=== PATIENT | female | born 1975 | race African-American/Black ===

== ENCOUNTER 2023-04-19 00:11 | Inpatient (IN) | payer MEDICAID, SELFPAY ==
[2023-04-19 00:23] VITALS: BP 119/84; PULSE 71; RESP 18; TEMP 36.7; O2SAT 95
[2023-04-19 00:26] VITALS: BMI 30.3
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
[2023-04-19 06:00] VITALS: BP 135/85; PULSE 72; RESP 16; O2SAT 98
[2023-04-19] MEDS: duloxetine 60 mg Capsule PO (08:28)
[2023-04-19 09:47] VITALS: PULSE 75; RESP 16; O2SAT 98
[2023-04-19] MEDS: hyDROXYzine 25 mg Capsule 50 MG PO (12:55)
--- NOTE | 2023-04-19 12:56 | PC.NURSE ---
PRN VISTARIL 50 MG GIVEN PO PER PT C/O STATED AXNIETY
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
[2023-04-19 13:47] VITALS: BP 141/81; PULSE 63; RESP 16; TEMP 36.8; O2SAT 98
[2023-04-19] MEDS: ARIPiprazole 10 mg Tablet 5 MG PO (15:24)
[2023-04-19] MEDS: quetiapine 100 mg Tablet PO (20:05)
[2023-04-19] MEDS: prazosin 1 mg Capsule 2 MG PO (20:05)
[2023-04-19] MEDS: OLANZapine 5 mg ODT PO (20:05)
[2023-04-19 20:27] VITALS: BP 113/73; PULSE 65; RESP 16; TEMP 36.8; O2SAT 95
[2023-04-20 06:00] VITALS: BP 107/67; PULSE 80; RESP 16; O2SAT 95
[2023-04-20 08:00] VITALS: PULSE 75; RESP 16; O2SAT 96
[2023-04-20] MEDS: duloxetine 60 mg Capsule PO (08:53)
[2023-04-20] MEDS: ARIPiprazole 10 mg Tablet PO (08:53)
--- NOTE | 2023-04-20 09:04 | PC.NURSE ---
During morning assessment, patient reported depression and thoughts of harming self. Patient denied a plan. Patient did not want to talk about it, per patient. Patient stated that she is very tired, eyelids heavy, and wanted to lay down. This nurse escorted patient to her room and ensured she safely returned to bed. Will continue to monitor.
[2023-04-20] MEDS: hyDROXYzine 25 mg Capsule 50 MG PO (12:54)
--- NOTE | 2023-04-20 12:55 | PC.NURSE ---
Patient reports anxiety 9/10. Patient states that she is anxious because she has a lot on her shoulders. This nurse administered Vistaril 50mg PO to patient. Will continue to monitor closely.
[2023-04-20 13:25] VITALS: BP 102/66; PULSE 77; RESP 16; TEMP 36.5; O2SAT 99
--- NOTE | 2023-04-20 17:35 | P.NPUPN_ITS ---
Subjective NPU Subjective: Patient presented today reporting that she is feeling about the same. She endorsed continued auditory and visual hallucinations but reports that she had no side effects from the medication and feels like she is tolerating the Abilify fine. She did meet with the social work team and does feel optimistic that she can get help for aftercare and hopefully some assistance with a residential recovery situation. She reports that she slept okay. We discussed continuing to titrate the Abilify to effect. Mental Status Exam MSE Comments: This is a overweight versus obese -Serbian female with hospital scrubs with limited grooming and eye contact. No abnormal movements except for psychomotor retardation. Cooperative with exam in mild distress. Speech was decreased rate and volume with significant mumbling and mild dysarthria. Mood described as depressed, affect congruent. Thought process linear. Thought content: Patient endorsed suicidal and homicidal ideation, there was paranoia reported and guardedness noted, she endorsed auditory and visual hallucinations. Attention and concentration were mostly intact and memory was limited but at times reliable but none were formally tested. He is alert and oriented to person and place. Insight, judgment and impulse control are limited versus impaired. Vitals/I&O/Wt Last Vital Signs Temp 98.7 F 04/20/23 19:51 Pulse 70 04/20/23 19:51 Resp 16 04/20/23 19:51 BP 116/78 04/20/23 19:51 Pulse Ox 95 04/20/23 19:51 O2 Del Method Room Air 04/20/23 08:00 Weight last 48 hrs Weight 70.307 kg A&P Assessment and plan (1) Schizophrenia: Plan This is a 48-year-old, -Serbian female with a reported long history of mental health/psychiatric concerns going back 20 years with multiple trials of medications who presents off of medication with significant psychosocial stressors of being newly homeless. 1. Started Abilify, with ? dose today of 5 mg, then this morning started 10 mg p.o. daily. 2. Encourage individual, group, and milieu therapy. 3. Continue q-15-minute checks for safety. 4. Work with social work team on her current living situation. Involuntary Hold Information 96 Hour Hold: 96 Hour Involuntary Admission: No Attestations NPU Medical Necessity Statement*: Inpatient hospitalization is medically necessary and the clinically appropriate intervention at this time.? We will monitor medications and make changes as indicated.? Likely length of stay 5-7 days. Coding Level of Care Code Acute Code for Chg Fwd Diagnoses Schizophrenia F20.9
[2023-04-20 19:51] VITALS: BP 116/78; PULSE 70; RESP 16; TEMP 37.1; O2SAT 95
[2023-04-20] MEDS: prazosin 1 mg Capsule 2 MG PO (20:22)
[2023-04-20] MEDS: quetiapine 100 mg Tablet PO (20:22)
[2023-04-21 06:00] VITALS: BP 117/72; PULSE 70; RESP 16; O2SAT 92
[2023-04-21] MEDS: albuterol 2.5 mg/3 mL Neb INHALATION (07:56)
[2023-04-21] MEDS: budesonide 0.5 mg/2 mL Neb INHALATION (07:56)
[2023-04-21 07:59] VITALS: PULSE 74; RESP 18; O2SAT 95
[2023-04-21] MEDS: duloxetine 60 mg Capsule PO (08:32)
[2023-04-21] MEDS: ARIPiprazole 10 mg Tablet PO (08:32)
[2023-04-21 13:44] VITALS: BP 116/73; PULSE 70; RESP 16; TEMP 36.6; O2SAT 95
--- NOTE | 2023-04-21 18:29 | P.NPUPN_ITS ---
Subjective NPU Subjective: Patient presented today reporting that she has been working with the social work team for possible women shelters. She reports that she made some calls as they recommended and that one place reported that they might be able to give her an answer and a likely spot on Thursday. We discussed continuing to call the numbers to give her the greatest option for aftercare. We had a long discussion about the Abilify so that she understood its purpose. We also discussed the fact that it is available in a 1 or 2-month injection. Mental Status Exam MSE Comments: This is a overweight versus obese -[place]er female with hospital scrubs with limited grooming and eye contact. No abnormal movements except for psychomotor retardation. Cooperative with exam in mild distress. Speech was decreased rate and volume with significant mumbling and mild dysarthria. Mood described as depressed, affect congruent. Thought process linear. Thought content: Patient endorsed suicidal and homicidal ideation, there was paranoia reported and guardedness noted, she endorsed auditory and visual hallucinations. Attention and concentration were mostly intact and memory was limited but at times reliable but none were formally tested. He is alert and oriented to person and place. Insight, judgment and impulse control are limited versus impaired. Vitals/I&O/Wt Last Vital Signs Temp 97.9 F 04/21/23 19:37 Pulse 74 04/21/23 19:37 Resp 18 04/21/23 20:00 BP 115/79 04/21/23 19:37 Pulse Ox 95 04/21/23 19:37 O2 Del Method Room Air 04/21/23 19:37 A&P Assessment and plan (1) Schizophrenia: Plan This is a 48-year-old, -[place] female with a reported long history of mental health/psychiatric concerns going back 20 years with multiple trials of medications who presents off of medication with significant psychosocial stressors of being newly homeless. 1. Started Abilify, with ? dose today of 5 mg, then 04/20/2023 started 10 mg p.o. daily. 2. Encourage individual, group, and milieu therapy. 3. Continue q-15-minute checks for safety. 4. Work with social work team on her current living situation. Involuntary Hold Information 96 Hour Hold: 96 Hour Involuntary Admission: No Attestations NPU Medical Necessity Statement*: Inpatient hospitalization is medically necessary and the clinically appropriate intervention at this time.? We will monitor medications and make changes as indicated.? Likely length of stay 4-6 days. Coding Level of Care Code Acute Code for Chg Fwd Diagnoses Schizophrenia F20.9
[2023-04-21] MEDS: hyDROXYzine 25 mg Capsule 50 MG PO (19:34)
[2023-04-21] MEDS: quetiapine 100 mg Tablet PO (19:34)
[2023-04-21] MEDS: prazosin 1 mg Capsule 2 MG PO (19:34)
[2023-04-21 19:37] VITALS: BP 115/79; PULSE 74; RESP 20; TEMP 36.6; O2SAT 95
[2023-04-21 20:00] VITALS: RESP 18
[2023-04-22 06:00] VITALS: BP 113/74; PULSE 88; RESP 18; TEMP 36.8; O2SAT 97
[2023-04-22 09:07] VITALS: PULSE 71; RESP 16; O2SAT 97
[2023-04-22] MEDS: budesonide 0.5 mg/2 mL Neb INHALATION (09:08)
[2023-04-22] MEDS: ARIPiprazole 10 mg Tablet PO (10:10)
[2023-04-22] MEDS: duloxetine 60 mg Capsule PO (10:10)
[2023-04-22 14:00] VITALS: BP 113/85; PULSE 70; RESP 16; TEMP 36.9; O2SAT 93
--- NOTE | 2023-04-22 16:01 | P.NPUPN_ITS ---
Subjective NPU Subjective: Patient presented today reporting that she is doing okay. She reports that the medication is working effectively and she has been working with the social work team to try to find some, limited long-term most likely. She reports that [address] so they were not sure when they would have a spot the other place guaranteed her spot by Thursday. She wondered whether we would allow her to stay till then and we discussed continuing to work with the social work team to make sure we have explored all the options but that we were committed to solidify her medication and discharge her to a reasonable situation for her to continue her recovery. Mental Status Exam MSE Comments: This is a overweight versus obese -[place] female with hospital scrubs with limited grooming and eye contact. No abnormal movements except for psychomotor retardation. Cooperative with exam in mild distress. Speech was decreased rate and volume with significant mumbling and mild dysarthria. Mood described as depressed, affect congruent, but slightly brighter. Thought process linear. Thought content: Patient endorsed suicidal and homicidal ideation, there was paranoia reported and guardedness noted, she endorsed auditory and visual hallucinations. Attention and concentration were mostly intact and memory was limited but at times reliable but none were formally tested. He is alert and oriented to person and place. Insight, judgment and impulse control are limited versus impaired. Vitals/I&O/Wt Last Vital Signs Temp 98.4 F 04/22/23 14:00 Pulse 70 04/22/23 14:00 Resp 16 04/22/23 14:00 BP 113/85 04/22/23 14:00 Pulse Ox 93 04/22/23 14:00 O2 Del Method Room Air 04/22/23 09:07 A&P Assessment and plan (1) Schizophrenia: Plan This is a 48-year-old, -[place] female with a reported long history of mental health/psychiatric concerns going back 20 years with multiple trials of medications who presents off of medication with significant psychosocial stressors of being newly homeless. 1. Started Abilify, with ? dose today of 5 mg, then 04/20/2023 started 10 mg p.o. daily. 2. Encourage individual, group, and milieu therapy. 3. Continue q-15-minute checks for safety. 4. Work with social work team on her current living situation. Involuntary Hold Information 96 Hour Hold: 96 Hour Involuntary Admission: No Attestations NPU Medical Necessity Statement*: Inpatient hospitalization is medically necessary and the clinically appropriate intervention at this time.? We will monitor medications and make changes as indicated.? Likely length of stay 3-5 days. Coding Level of Care Code Acute Code for Chg Fwd Diagnoses Schizophrenia F20.9
[2023-04-22 19:55] VITALS: BP 124/77; PULSE 65; RESP 18; TEMP 36.8; O2SAT 94
[2023-04-22] MEDS: prazosin 1 mg Capsule 2 MG PO (20:20)
[2023-04-22] MEDS: hyDROXYzine 25 mg Capsule 50 MG PO (20:20)
[2023-04-22] MEDS: quetiapine 100 mg Tablet PO (20:20)
[2023-04-23 06:00] VITALS: BP 92/57; PULSE 67; RESP 15; O2SAT 93
[2023-04-23] MEDS: ARIPiprazole 10 mg Tablet PO (08:46)
[2023-04-23] MEDS: duloxetine 60 mg Capsule PO (08:46)
[2023-04-23 14:00] VITALS: BP 138/84; PULSE 62; RESP 16; TEMP 36.8; O2SAT 98
--- NOTE | 2023-04-23 18:29 | W.PM.NPUPNS ---
Subjective NPU Subjective: Patient presented today notably outside of her room and appearing slightly less isolative. She endorses that she has made calls social work team has suggested and has 1 facility in [place] that is willing to take her Thursday. We encouraged that she continue to make calls to all the facilities so that she can utilize the one that best suits her. She agreed to continue making a calsl and reported that she was doing fine of the medication. Mental Status Exam MSE Comments: This is a overweight versus obese -[place] female with hospital scrubs with limited grooming and eye contact. No abnormal movements except for psychomotor retardation. Cooperative with exam in mild distress. Speech was decreased rate and volume with significant mumbling and mild dysarthria. Mood described as a little better, affect congruent and slightly brighter. Thought process linear. Thought content: Patient endorsed suicidal and homicidal ideation, there was paranoia reported and less guardedness noted, she endorsed auditory and visual hallucinations. Attention and concentration were mostly intact and memory was limited but at times reliable but none were formally tested. She is alert and oriented to person and place. Insight, judgment and impulse control are limited versus impaired. Vitals/I&O/Wt Last Vital Signs Temp 97.7 F 04/23/23 20:24 Pulse 67 04/23/23 20:24 Resp 16 04/23/23 20:24 BP 113/77 04/23/23 20:24 Pulse Ox 95 04/23/23 20:24 O2 Del Method Room Air 04/23/23 20:24 A&P Assessment and plan (1) Schizophrenia: Plan This is a 48-year-old, -[place] female with a reported long history of mental health/psychiatric concerns going back 20 years with multiple trials of medications who presents off of medication with significant psychosocial stressors of being newly homeless. 1. Started Abilify, with ? dose today of 5 mg, then 04/20/2023 started 10 mg p.o. daily. 2. Encourage individual, group, and milieu therapy. 3. Continue q-15-minute checks for safety. 4. Work with social work team on her current living situation. Involuntary Hold Information 96 Hour Hold: 96 Hour Involuntary Admission: No Attestations NPU Medical Necessity Statement*: Inpatient hospitalization is medically necessary and the clinically appropriate intervention at this time.? We will monitor medications and make changes as indicated.? Likely length of stay 2-4 days. Coding Level of Care Code Acute Code for Chg Fwd Diagnoses Schizophrenia F20.9
[2023-04-23 19:44] VITALS: PULSE 66; RESP 16; O2SAT 100
[2023-04-23] MEDS: budesonide 0.5 mg/2 mL Neb INHALATION (19:44)
[2023-04-23 20:24] VITALS: BP 113/77; PULSE 67; RESP 16; TEMP 36.5; O2SAT 95
[2023-04-23] MEDS: quetiapine 100 mg Tablet PO (20:30)
[2023-04-23] MEDS: prazosin 1 mg Capsule 2 MG PO (20:30)
[2023-04-23] MEDS: hyDROXYzine 25 mg Capsule 50 MG PO (20:35)
--- NOTE | 2023-04-24 06:24 | PC.NURSE ---
pt requested she not be woken up at 0600 for vs so she could sleep in. pt resp 18 pt resting well.
[2023-04-24] MEDS: duloxetine 60 mg Capsule PO (08:47)
[2023-04-24] MEDS: ARIPiprazole 10 mg Tablet PO (08:47)
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
[2023-04-24] MEDS: hyDROXYzine 25 mg Capsule 50 MG PO ×2 (12:57→20:31)
[2023-04-24 14:00] VITALS: BP 165/95; PULSE 80; RESP 16; TEMP 36.8; O2SAT 95
[2023-04-24 20:16] VITALS: BP 127/84; PULSE 86; RESP 17; TEMP 37.1; O2SAT 95
[2023-04-24] MEDS: trazodone 50 mg Tablet PO (20:30)
[2023-04-24] MEDS: prazosin 1 mg Capsule 2 MG PO (20:30)
[2023-04-24] MEDS: acetaminophen 325 mg Tablet 650 MG PO (20:31)
[2023-04-24] MEDS: quetiapine 100 mg Tablet PO (20:31)
[2023-04-24 21:32] VITALS: PULSE 78; RESP 16; O2SAT 96
[2023-04-24] MEDS: budesonide 0.5 mg/2 mL Neb INHALATION (21:32)
[2023-04-25 06:00] VITALS: BP 120/78; PULSE 66; RESP 18; O2SAT 93
[2023-04-25 08:00] VITALS: PULSE 65; RESP 16; O2SAT 97
[2023-04-25] MEDS: ARIPiprazole 10 mg Tablet PO (10:03)
[2023-04-25] MEDS: duloxetine 60 mg Capsule PO (10:03)
[2023-04-25 14:00] VITALS: BP 111/67; PULSE 68; RESP 16; TEMP 36.8; O2SAT 96
[2023-04-25] MEDS: ARIPiprazole 10 mg Tablet 5 MG PO (18:13)
--- NOTE | 2023-04-25 18:27 | W.PM.NPUPNS ---
Subjective NPU Subjective: Patient presented today reporting that she is doing okay. She is working with the social work team with the plan to go to [facility] on Thursday. She identified not feeling as well today and having more symptoms. We discussed the risks, benefits and alternatives of increasing Abilify to 15 mg and she understood and agreed to proceed as is documented in this note. We discussed a continued plan to discharge her on Thursday morning to [facility]. Mental Status Exam MSE Comments: This is a overweight versus obese -Gabonese female with hospital scrubs with limited grooming and eye contact. No abnormal movements except for psychomotor retardation. Cooperative with exam in mild distress. Speech was decreased rate and volume with significant mumbling and mild dysarthria. Mood described as not as good today, affect congruent. Thought process linear. Thought content: Patient denied suicidal and still endorsed homicidal ideation, there was paranoia reported and less guardedness noted, she endorsed auditory and visual hallucinations. Attention and concentration were mostly intact and memory was limited but at times reliable but none were formally tested. She is alert and oriented to person and place. Insight and judgment are improving and impulse control is limited. Vitals/I&O/Wt Last Vital Signs Temp 98.7 F 04/25/23 19:27 Pulse 63 04/25/23 19:27 Resp 20 H 04/25/23 19:27 BP 121/81 04/25/23 19:27 Pulse Ox 94 04/25/23 19:27 O2 Del Method Room Air 04/25/23 20:15 Weight last 48 hrs Weight 77.292 kg A&P Assessment and plan (1) Schizophrenia: Plan This is a 48-year-old, -Gabonese female with a reported long history of mental health/psychiatric concerns going back 20 years with multiple trials of medications who presents off of medication with significant psychosocial stressors of being newly homeless. 1. Started Abilify, with ? dose today of 5 mg, then 04/20/2023 started 10 mg p.o. daily. Increased Abilify to 15 mg p.o. daily. 2. Encourage individual, group, and milieu therapy. 3. Continue q-15-minute checks for safety. 4. Work with social work team on her current living situation. Involuntary Hold Information 96 Hour Hold: 96 Hour Involuntary Admission: No Attestations NPU Medical Necessity Statement*: Inpatient hospitalization is medically necessary and the clinically appropriate intervention at this time.? We will monitor medications and make changes as indicated.? Likely length of stay 2 days. Coding Level of Care Code Acute Code for Chg Fwd Diagnoses Schizophrenia F20.9
[2023-04-25 19:27] VITALS: BP 121/81; PULSE 63; RESP 20; TEMP 37.1; O2SAT 94
[2023-04-25] MEDS: OLANZapine 5 mg ODT PO (19:30)
[2023-04-25] MEDS: haloperidol 5 mg Tablet PO (19:33)
[2023-04-25] MEDS: hyDROXYzine 25 mg Capsule 50 MG PO (20:48)
[2023-04-25] MEDS: quetiapine 100 mg Tablet PO (20:48)
[2023-04-25] MEDS: prazosin 1 mg Capsule 2 MG PO (20:48)
[2023-04-26 06:00] VITALS: BP 105/70; PULSE 61; RESP 14; O2SAT 90
--- NOTE | 2023-04-26 07:38 | W.PM.NPUPNS ---
Subjective NPU Subjective: Patient presented today reporting that she is feeling like she is doing better today with the increase in Abilify. She denies any side effects of the medication. [facility] reports [facility] and feels she should be ready for this new chapter. Mental Status Exam MSE Comments: This is a overweight versus obese -[place] Citizen female with hospital scrubs with limited grooming and eye contact. No abnormal movements except for mild psychomotor retardation. Cooperative with exam in mild distress. Speech was decreased rate and volume with less mumbling and mild dysarthria. Mood described as doing better today, affect congruent. Thought process linear. Thought content: Patient denied suicidal and still endorsed negative thoughts about her uncle but denied that she would act on it, there was paranoia reported and less guardedness noted, she endorsed auditory and visual hallucinations. Attention and concentration were mostly intact and memory was limited but at times reliable but none were formally tested. She is alert and oriented to person and place. Insight and judgment are improving and impulse control is limited. Vitals/I&O/Wt Last Vital Signs Temp 98.7 F 04/25/23 19:27 Pulse 61 04/26/23 06:00 Resp 14 04/26/23 06:00 BP 105/70 04/26/23 06:00 Pulse Ox 90 04/26/23 06:00 O2 Del Method Room Air 04/26/23 07:27 Weight last 48 hrs Weight 77.292 kg A&P Assessment and plan (1) Schizophrenia: Plan This is a 48-year-old, -[place] Citizen female with a reported long history of mental health/psychiatric concerns going back 20 years with multiple trials of medications who presents off of medication with significant psychosocial stressors of being newly homeless. 1. Started Abilify, with ? dose today of 5 mg, then 04/20/2023 started 10 mg p.o. daily. Increased Abilify to 15 mg p.o. daily. 2. Encourage individual, group, and milieu therapy. 3. Continue q-15-minute checks for safety. 4. Work with social work team on her current living situation. Involuntary Hold Information 96 Hour Hold: 96 Hour Involuntary Admission: No Attestations NPU Medical Necessity Statement*: Inpatient hospitalization is medically necessary and the clinically appropriate intervention at this time.? We will monitor medications and make changes as indicated.? Tentative plan for discharge tomorrow Coding Level of Care Code Acute Code for Chg Fwd Diagnoses Schizophrenia F20.9
--- NOTE | 2023-04-26 08:52 | PC.NURSE ---
During morning assessment, patient stated to this nurse that she is feeling a little bit better than yesterday. Patient stated that she isn't currently feeling suicidal, but that she did last night.
[2023-04-26] MEDS: ARIPiprazole 10 mg Tablet 15 MG PO (08:55)
[2023-04-26] MEDS: duloxetine 60 mg Capsule PO (08:57)
[2023-04-26 14:00] VITALS: BP 102/67; PULSE 64; RESP 20; TEMP 36.9; O2SAT 95
[2023-04-26] MEDS: quetiapine 100 mg Tablet PO (20:15)
[2023-04-26] MEDS: prazosin 1 mg Capsule 2 MG PO (20:15)
[2023-04-26 20:53] VITALS: BP 122/80; PULSE 68; RESP 18; TEMP 37; O2SAT 96
[2023-04-27 06:00] VITALS: BP 136/72; PULSE 76; RESP 16; TEMP 36.4; O2SAT 97
[2023-04-27 08:00] VITALS: PULSE 73; RESP 18; O2SAT 94
[2023-04-27] MEDS: ARIPiprazole 10 mg Tablet 15 MG PO (08:13)
[2023-04-27] MEDS: duloxetine 60 mg Capsule PO (08:14)
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
[2023-04-27 13:22] VITALS: PULSE 73; RESP 18; O2SAT 94
[2023-04-27 14:00] VITALS: BP 99/58; PULSE 70; RESP 16; TEMP 36.6; O2SAT 98
== END 2023-04-27 15:26 | disposition home or self-care (01) | DRG 885 ==
PROVIDERS: Admitting Provider Psychiatry & Neurology Psychiatry; Visit Provider Psychiatry & Neurology Psychiatry
DX: F20.9 Schizophrenia, unspecified (principal); R45.851 Suicidal ideations; R45.850 Homicidal ideations; Z59.00 Homelessness unspecified; F43.10 Post-traumatic stress disorder, unspecified; Z81.8 Family history of other mental and behavioral disorders
CPT/HCPCS: 94640; 97150; 97165; 99238; J7613; J7626

== ENCOUNTER 2023-06-04 10:51 | Inpatient (IN) | payer MEDICAID, SELFPAY ==
[2023-06-04 10:59] VITALS: BP 103/73; PULSE 75; RESP 16; TEMP 36.9; O2SAT 96
[2023-06-04 11:21] VITALS: RESP 18; O2SAT 97
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
[2023-06-04 11:46] LABS: Add Urine Microscopic? YES; Bilirubin Urine Neg (Negative); Blood Urine Neg (Negative); Glucose Urine UA Norm (Normal); Ketones Urine 1+ (Negative); Leukocyte Esterase Urine Trace (Negative); Nitrate Urine Negative (Negative); Protein Urine Neg (Negative); Urine Appearance Clear (CLEAR); Urine Color Yellow (Yellow); Urobilinogen Urine Norm (Negative); pH Urine 5 (5-7)
[2023-06-04 11:47] LABS: Add Urine Culture? No; Amphetamines Screen Urine Negative (Negative); Barbiturates Screen Urine Negative (Negative); Benzodiazepines Screen Urine Negative (Negative); Cocaine Screen Urine Negative (Negative); Opiate Screen Urine Negative (Negative); PCP Screen Urine Negative (Negative); RBC Urine 0-4 /hpf (0-2); Squamous Epithelial Cell Urine 0-4 /hpf (0-5); THC Screen Urine Negative (Negative)
[2023-06-04 11:51] LABS: Basophils % 0.5 %; Eosinophils # 0.1 10^3/uL (0.0-0.8); Eosinophils % 2.5 %; Lymphocytes # 1.4 10^3/uL (0.8-4.8); Lymphocytes % 30.6 %; Mean Platelet Volume 10.1 fL (7.4-10.4); Monocytes # 0.3 10^3/uL (0.2-0.9); Monocytes % 7.7 %; Neutrophils # 2.57 10^3/uL (1.8-7.7); Neutrophils % 58.2 %; Nucleated Red Blood Cells % 0 %; Platelet Count 153 10^3/cmm (157-399); White Blood Count 4.41 10^3/uL (3.29-11.43)
[2023-06-04 12:13] LABS: Alanine Aminotransferase 42 U/L (0-33); Albumin Level 3.6 g/dL (3.5-5.2); Alkaline Phosphatase 98 U/L (35-105); Aspartate Amino Transferase 33 U/L (0-32); Blood Urea Nitrogen 13 mg/dL (6-20); Calcium 9.4 mg/dL (8.5-10.5); Carbon Dioxide 29 mmol/L (22-29); Chloride 108 mmol/L (98-107); Globulin 2.9 g/dL (1.3-4.6); Glomerular Filtration Rate 92.6 mL/min (90-130); Glucose 105 mg/dL (65-115); Osmolality Calculated 298 mOsm/kg (285-295); Sodium 144 mmol/L (136-145); Total Bilirubin 0.2 mg/dL (0.15-1.2); Total Protein 6.5 g/dL (6.6-8.7)
[2023-06-04 12:17] LABS: Acetaminophen < 5.0 ug/mL (10-30); Alcohol Level < 10 mg/dL (0-10); Salicylate < 0.3 mg/dL (3-10)
[2023-06-04 12:34] LABS: HCG Qualitative Urine. Negative (Negative)
[2023-06-04 14:50] VITALS: BP 122/89; PULSE 63; RESP 18; TEMP 36.6; O2SAT 98
--- NOTE | 2023-06-04 16:30 | PC.NURSE ---
Patient presents from ER looking disheveled. She states she currently lives at [facility] with two roommates and felt well until recently, when she began to have increased anxiety. She states she has been seeing a figure in her room and hearing someone calling her full name when she is alone. Patient endorses poor sleep since last Thursday and says this is due to her doctor from [facility] in [place], [place] changing her sleeping medications. She denies avh and si/hi at this time, but does endorse feeling anxious at this time. Patient has been hospitalized multiple times in different states in psychiatric facilities and currently utilizes [facility] for outpatient psychiatric treatment.
[2023-06-04] MEDS: hyDROXYzine 25 mg Capsule 50 MG PO (18:24)
[2023-06-04 20:07] VITALS: BP 110/65; PULSE 64; RESP 16; TEMP 36.7; O2SAT 96
[2023-06-04] MEDS: trazodone 50 mg Tablet PO (20:15)
[2023-06-04] MEDS: prazosin 1 mg Capsule 2 MG PO (20:15)
[2023-06-04] MEDS: quetiapine 100 mg Tablet PO (20:15)
[2023-06-05] MEDS: ARIPiprazole 10 mg Tablet 15 MG PO (08:49)
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
[2023-06-05] MEDS: duloxetine 30 mg Capsule PO (13:54)
[2023-06-05 14:00] VITALS: BP 124/81; PULSE 69; RESP 16; TEMP 36.9; O2SAT 94
[2023-06-05] MEDS: prazosin 1 mg Capsule 2 MG PO (20:20)
[2023-06-05] MEDS: trazodone 50 mg Tablet PO (20:20)
[2023-06-05] MEDS: quetiapine 100 mg Tablet 200 MG PO (20:20)
[2023-06-05 20:46] VITALS: BP 129/80; PULSE 64; RESP 16; TEMP 36.7; O2SAT 99
--- NOTE | 2023-06-06 06:27 | PC.NURSE ---
pt resting resp 16
[2023-06-06] MEDS: duloxetine 60 mg Capsule PO (09:43)
[2023-06-06] MEDS: ARIPiprazole 10 mg Tablet 15 MG PO (09:43)
--- NOTE | 2023-06-06 13:56 | P.NPUPN_ITS ---
Subjective NPU Subjective: Patient is a 48-year-old -[place] female with a history of schizophrenia along with PTSD admitted with psychosis and suicidal ideation. Patient had reported feeling better with the medication changes including reinitiation of Cymbalta and Abilify. She had expressed desire to return back to [facility] but was concerned about returning back to [facility] due to the medica tion changes that had been made there that were less than productive. Patient reported improved sleep and continue to report some depression with low energy and low motivation. She had continued to endorse hearing voices and reported some continued paranoia. Mental Status Exam MSE Comments: Obese -[place]gian female who was alert and oriented to person place time and situation. There was no evidence of any abnormal involuntary motor movements tics or tremors appreciated. Her gait was slow and steady. Her speech was normal in regards to rate rhythm and prosody. Her mood was described as depressed. Her affect was blunted. Her thought process was linear logical and goal-directed. Her thought content showed evidence of suicidal ideation with no plan. She denied any homicidal ideation. She had endorsed auditory hallucinations but did not actively appear to be responding to internal stimuli. There was continued ideas of reference and paranoia noted. Her attention span appeared fair. Her recent and remote memory appeared grossly intact. Her insight was limited. Her judgment was poor. Her impulse control appeared poor as well. Vitals/I&O/Wt Last Vital Signs Temp 98.1 F 06/05/23 20:46 Pulse 64 06/05/23 20:46 Resp 16 06/05/23 20:46 BP 129/80 06/05/23 20:46 Pulse Ox 99 06/05/23 20:46 O2 Del Method Room Air 06/05/23 20:46 Data NPU 06/04/23 11:45 06/04/23 11:45 A&P Assessment and plan (1) Schizophrenia: (2) PTSD (post-traumatic stress disorder): Plan This is a 48-year-old, -[place] female with a reported long history of mental health/psychiatric concerns going back 20 years with multiple trials of medications who presents again to the NPU after 1 month with worsening symptoms with the adjustment of his medications by her nurse practitioner approximately 3 weeks ago. 1. Continue Abilify 20 mg daily, Seroquel 200 mg at night, prazosin 2 mg at night, and Cymbalta at 60 mg daily. 2. Encourage individual, group, and milieu therapy. 3. Continue q-15-minute checks for safety. 4. Work with social work team on her current living situation although [facility] may remain viable option. Involuntary Hold Information 96 Hour Hold: 96 Hour Involuntary Admission: No Attestations NPU Medical Necessity Statement*: Inpatient hospitalization is medically necessary and deemed to ?be ?the clinically appropriate intervention ?at this time.? We will monitor/initiate medications and make changes as indicated.? The patient?s likely length of stay 7-10 days. Coding Level of Care Code Acute Code for Chg Fwd Diagnoses Schizophrenia F20.9 PTSD (post-traumatic stress disorder) F43.10
[2023-06-06 14:00] VITALS: BP 113/73; PULSE 90; RESP 18; TEMP 36.7; O2SAT 98
[2023-06-06] MEDS: prazosin 1 mg Capsule 2 MG PO (21:15)
[2023-06-06] MEDS: quetiapine 100 mg Tablet 200 MG PO (21:15)
[2023-06-06 21:27] VITALS: BP 134/81; PULSE 95; RESP 18; TEMP 36.6; O2SAT 99
[2023-06-06] MEDS: OLANZapine 5 mg ODT PO (22:27)
[2023-06-06] MEDS: trazodone 50 mg Tablet PO (22:27)
[2023-06-07 06:00] VITALS: BP 109/68; PULSE 63; RESP 16; O2SAT 95; BMI 34.9
[2023-06-07] MEDS: ARIPiprazole 10 mg Tablet 15 MG PO (09:20)
[2023-06-07] MEDS: duloxetine 60 mg Capsule PO (09:20)
--- NOTE | 2023-06-07 12:58 | P.NPUPN_ITS ---
Subjective NPU Subjective: Patient is a 48-year-old -Bangl[place] female with a history of schizophrenia along with PTSD admitted with psychosis and suicidal ideation. The patient had reported less paranoia. She had reported no nightmares or flashbacks related to trauma. She reports that her depression appeared to be getting better. She had also reported that the voices had been a little quieter . The patient did remain somewhat isolative while staying in her bed most of the day. She had reported that the combination of medications that she had been started on by Dr. Huber had been very helpful until it was changed by her outpatient provider. The patient had reported sleeping throughout the night currently. Mental Status Exam MSE Comments: Obese -[place] female who was alert and oriented to person place time and situation. There was no evidence of any abnormal involuntary motor movements tics or tremors appreciated. Her gait was slow and steady. Her speech was normal in regards to rate rhythm and prosody. Her mood was described as better. Her affect remained blunted. Her thought process was linear, logical and goal-directed. Her thought content showed no evidence of suicidal ideation with no plan. She denied any homicidal ideation. She had endorsed auditory hallucinations but did not actively appear to be responding to internal stimuli. There were no overt delusions noted. Her attention span appeared fair. Her recent and remote memory appeared grossly intact. Her insight was limited. Her judgment was improving. Her impulse control appeared to be improving as well. Vitals/I&O/Wt Last Vital Signs Temp 97.9 F 06/06/23 21:27 Pulse 63 06/07/23 06:00 Resp 16 06/07/23 06:00 BP 109/68 06/07/23 06:00 Pulse Ox 95 06/07/23 06:00 O2 Del Method Room Air 06/05/23 20:46 Weight last 48 hrs Weight 81.25 kg Data NPU 06/04/23 11:45 06/04/23 11:45 A&P Assessment and plan (1) Schizophrenia: (2) PTSD (post-traumatic stress disorder): Plan This is a 48-year-old, -[place] female with a reported long history of mental health/psychiatric concerns going back 20 years with multiple trials of medications who presents again to the NPU after 1 month with worsening symptoms with the adjustment of his medications by her nurse practitioner approximately 3 weeks ago. 1. Continue Abilify 20 mg daily, Seroquel 200 mg at night, prazosin 2 mg at night, and Cymbalta at 60 mg daily. 2. Encourage individual, group, and milieu therapy. 3. Continue q-15-minute checks for safety. 4. Work with social work team on her current living situation although [facility] may remain viable option with possible discharge in 1-2 days. Involuntary Hold Information 96 Hour Hold: 96 Hour Involuntary Admission: No Attestations NPU Medical Necessity Statement*: Inpatient hospitalization is medically necessary and deemed to ?be ?the clinically appropriate intervention ?at this time.? We will monitor/initiate medications and make changes as indicated.? The patient?s likely length of stay 2-3 days. Coding Level of Care Code Acute Code for g Fwd Diagnoses Schizophrenia F20.9 PTSD (post-traumatic stress disorder) F43.10
[2023-06-07 13:57] VITALS: BP 92/64; PULSE 68; RESP 18; TEMP 36.9; O2SAT 94
[2023-06-07] MEDS: prazosin 1 mg Capsule 2 MG PO (20:42)
[2023-06-07] MEDS: quetiapine 100 mg Tablet 200 MG PO (20:43)
[2023-06-07] MEDS: trazodone 50 mg Tablet PO (20:43)
[2023-06-07 22:00] VITALS: RESP 18
[2023-06-08 06:00] VITALS: RESP 16
[2023-06-08] MEDS: ARIPiprazole 10 mg Tablet 15 MG PO (08:07)
[2023-06-08] MEDS: duloxetine 60 mg Capsule PO (08:07)
[2023-06-08 13:17] VITALS: BP 96/61; PULSE 66; RESP 15; TEMP 36.8; O2SAT 96
--- NOTE | 2023-06-08 13:46 | P.NPUPN_ITS ---
Subjective NPU Subjective: Patient is a 48-year-old -[place] female with a history of schizophrenia along with PTSD admitted with psychosis and suicidal ideation. She reported being less bothered by her thoughts. She denied any hallucinations at this time. She had reported her mood was better. The patient had isolated herself on the milieu throughout much of the day. She was able to engage in self-care a ppropriately without prompting. Patient had reported that her mood was better on her current medication regimen. Mental Status Exam MSE Comments: Obese -[place] female who was alert and oriented to person place time and situation. There was no evidence of any abnormal involuntary motor moveme nts tics or tremors appreciated. Her speech was normal in regards to rate rhythm and prosody. Her mood was described as all right. Her affect remained blunted. Her thought process was linear, logical and goal-directed. Her thought content showed no evidence of suicidal ideation with no plan. She denied any homicidal ideation. she denied any auditory or visual hallucinations today. There were no overt delusions noted but there was still some evidence of paranoia. Her attention span appeared fair. Her recent and remote memory appeared grossly intact. Her insight was limited. Her judgment was improving. Her impulse control appeared to be improving as well. Vitals/I&O/Wt Last Vital Signs Temp 98.2 F 06/08/23 13:17 Pulse 66 06/08/23 13:17 Resp 15 06/08/23 13:17 BP 96/61 06/08/23 13:17 Pulse Ox 96 06/08/23 13:17 O2 Del Method Room Air 06/07/23 13:57 Weight last 48 hrs Weight 81.25 kg Data NPU 06/04/23 11:45 06/04/23 11:45 A&P Assessment and plan (1) Schizophrenia: (2) PTSD (post-traumatic stress disorder): Plan This is a 48-year-old, -[place] female with a reported long history of mental health/psychiatric concerns going back 20 years with multiple trials of medications who presents again to the NPU after 1 month with worsening symptoms with the adjustment of his medications by her nurse practitioner approximately 3 weeks ago. 1. Continue Abilify 20 mg daily, Seroquel 200 mg at night, prazosin 2 mg at night, and Cymbalta at 60 mg daily. 2. Encourage individual, group, and milieu therapy. 3. Continue q-15-minute checks for safety. 4. Work with social work team on her current living situation although [facility] may remain viable option with possible discharge tomorrow.. Involuntary Hold Information 96 Hour Hold: 96 Hour Involuntary Admission: No Attestations NPU Medical Necessity Statement*: Inpatient hospitalization is medically necessary and deemed to ?be ?the clinically appropriate intervention ?at this time.? We will monitor/initiate medications and make changes as indicated.? The patient?s likely length of stay 1-2 days. Coding Level of Care Code Acute Code for Chg Fwd Diagnoses Schizophrenia F20.9 PTSD (post-traumatic stress disorder) F43.10
[2023-06-08] MEDS: quetiapine 100 mg Tablet 200 MG PO (20:14)
[2023-06-08] MEDS: prazosin 1 mg Capsule 2 MG PO (20:14)
[2023-06-08] MEDS: docusate sodium 100 mg Capsule PO (20:49)
[2023-06-08 21:00] VITALS: BP 108/78; PULSE 66; RESP 18; O2SAT 97
[2023-06-09 06:00] VITALS: BP 130/84; PULSE 65; RESP 16; O2SAT 97
[2023-06-09] MEDS: duloxetine 60 mg Capsule PO (08:19)
[2023-06-09] MEDS: ARIPiprazole 10 mg Tablet 15 MG PO (08:19)
--- NOTE | 2023-06-09 09:04 | PC.NURSE ---
During morning assessment, patient dneidd all. Patient is eager to be discharged. Patient reports having difficulty with her bowels.
[2023-06-09] MEDS: polyethylene glycol 3350 Pkt 17 gm PO (11:05)
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
[2023-06-09 12:13] VITALS: BP 130/84; PULSE 65; RESP 16; O2SAT 97
[2023-06-09 12:26] VITALS: BP 130/84; PULSE 65; RESP 16; O2SAT 97
[2023-06-09 14:00] VITALS: BP 117/83; PULSE 95; RESP 16; TEMP 37.2; O2SAT 90
== END 2023-06-09 15:00 | disposition home or self-care (01) | DRG 885 ==
LOC: ER 11:44 → NP 14:18
PROVIDERS: Admitting Provider Psychiatry & Neurology Psychiatry; Emergency Provider Emergency Medicine; Visit Provider Psychiatry & Neurology Psychiatry
DX: F29 Unspecified psychosis not due to a substance or known physiological condition (principal); R45.851 Suicidal ideations; F20.9 Schizophrenia, unspecified; F43.10 Post-traumatic stress disorder, unspecified; X58.XXXD Exposure to other specified factors, subsequent encounter; Z91.419 Personal history of unspecified adult abuse
CPT/HCPCS: 36415; 80053; 80306; 80307; 81001; 81025; 85025; 97150; 97165; 99238; 99285